=== PATIENT | female | born 1985 | race Caucasian/White ===

== ENCOUNTER 2019-08-30 13:32 | Outpatient (CLI) | payer OTHER, SELFPAY ==
[2019-08-30 14:13] LABS: Hematocrit 38.1 % (37.0-47.0); Hemoglobin 12.8 g/dL (12.0-15.0); Mean Corpuscular HGB Conc 33.6 g/dl (32-36); Mean Corpuscular Hemoglobin 28.1 pg (26-34); Mean Corpuscular Volume 83.6 fl (80-100); Platelet Count Result 211 k/mm3 (150-375); Red Blood Count 4.56 M/mm3 (4.2-5.4); Red Cell Distribution Width 14.6 % (11.5-14.5)
[2019-08-31 07:18] LABS: Rapid Plasma Reagin Non-Reactive (NonReactive)
== END 2019-08-30 13:33 | disposition home or self-care (01) ==
PROVIDERS: PCP Family Medicine; Visit Provider Obstetrics & Gynecology
DX: Z01.818 Encounter for other preprocedural examination (principal)
CPT/HCPCS: 36415; 85027; 86592; 86850; 86900; 86901

== ENCOUNTER 2019-08-31 10:34 | Inpatient (IN) | payer OTHER, SELFPAY ==
--- NOTE | 2019-08-12 12:59 | PC.NURSE ---
VERIFIED WITH OR SCHEDULE AND PATIENT--C/S WITH TUBAL LIGATION ON 08/31/19 AT 1330 PATIENT GIVEN REQUISITION FOR LAB DRAW ON 08/30/19
[2019-08-31] VITALS (37 sets, daily range): BP systolic 75–250; BP diastolic 47–234; PULSE 52–122; RESP 14–19; TEMP 36.1–36.9; O2SAT 94–100; BMI 36.1
--- NOTE | 2019-08-31 10:34 | LDADM ---
This patient, Sindy Carrillo, was admitted to [facility] on 08/31/19 at 10:34. Plans for labor, pain management and were discussed with patient. Patient/family oriented to hospital policies and general routines including ID bracelet, bed and alarms, visiting hours, pain management, procedures, bathroom and other care routines, personal items, smoking policy, room service/diet and guest tray routines, infant security routines, and visiting hours. Patient/Family are encouraged to report perceived risks to care and to ask questions if they do not understand what they are told or what they should do. See OBIX for further documentation.
--- NOTE | 2019-08-31 11:18 | PM.IMHP ---
H&P: HPI History of Present Illness Chief complaint: Pre-IN Narrative: 33-year-old 4 para 2011 at 39 3/7 weeks gestation who is scheduled for repeat delivery with tubal ligation today. She began having contractions at 5:00 a.m. and presented to the hospital earlier than her scheduled time. However, her cervix is still closed. She is having mild contractions every 5-6 minutes. After a discussion again today, she elects to continue with the plan of repeat delivery with tubal ligation. She does not desire any future childbearing. Her has been complicated by hypothyroidism, treated with Synthroid. Her blood type is O-positive, she is rubella immune, hepatitis-B surface antigen negative, RPR negative, HIV negative. GBS culture is negative. Ultrasound exam suggests normal anatomy. Glucose challenge test is normal at 84. She has good movement. She has no vaginal bleeding or loss of fluid. Review of Systems Review of Systems: All systems reviewed & are unremarkable except as noted in HPI and below PMFSH Surgical History Surgical History (Updated 08/31/19 @ 11:21 by Lalit Zarco MD) History of delivery Family History Family History Mother Diabetes mellitus Social History Social History Substance use: never Spiritual care concerns: No Comments One vaginal delivery and one for breech. Meds Home Medications and Allergies Home Medications Medication Instructions Recorded Confirmed Type PNV cmb#95-ferrous fumarate-FA 1 tablet PO DAILY 08/12/19 08/12/19 History [] levothyroxine 50 mcg PO DAILY 08/12/19 08/12/19 History Allergies Allergy/AdvReac Type Severity Reaction Status Date / Time No Known Allergies Allergy Verified 08/12/19 12:39 Vital Signs Vital Signs - 24 hr 08/31/19 11:15 Pulse Rate 76 Blood Pressure 117/83 Exam Const: Orientation/consciousness: patient oriented x3 Other: Well-developed, well-nourished female in no acute distress. Neck: Thyroid: thyroid normal Lymphatic: no lymphadenopathy noted (in neck, axilla or inguinal nodes) Resp: Effort & Inspection: normal respiratory effort Auscultation: clear to auscultation bilaterally Cardio: Rate: regular rate Rhythm: regular rhythm Heart sounds: S1 normal heart sound present and S2 normal heart sound present GI: Other: ABD: Soft, nontender, nondistended. No guarding or rebound tenderness. No hepatosplenomegaly. Gravid. NST reactive. TOCO: contractions every 5-6 min. : General: Yes no CVA tenderness Other: Cervix closed, soft to my exam today. Back/Spine/Pelvis: Back: no CVA tenderness Skin: General skin exam: normal color and no rashes or lesions noted Neuro: General: patient oriented x3 Extrem: Other: Extremities: nontender with no edema Psych: Mental Status: mental status grossly normal Affect: normal affect Assessment and Plan Assessment and plan (1) History of delivery: Code(s): Z98.891 - History of uterine scar from previous surgery Status: Acute Assessment and Plan: We reviewed trial of labor versus repeat delivery. After long discussion, she has opted to go ahead with repeat delivery. In addition, she desires permanent contraception. She does not want any future pregnancies.She understands there are temporary methods of contraception available to her. She understands that there are nonsurgical options as well as surgical options. She understands that tubal ligation will render her permanently sterile. She understands that there is a failure rate associated with tubal ligation, as well as an inherent ectopic gestation risk. Furthermore, she understands risks of surgery to include risks of anesthesia, risks of pain, infection, bleeding, blood products, thromboembolic phenom
[2019-08-31] MEDS: LACTATED RINGERS 1,000 ML 999 ML IV CONT ×2 (11:47→12:28)
--- NOTE | 2019-08-31 12:43 | WPDANESEPPF ---
Anes - Initial Pre Proc Eval Procedure: Operation Date: 08/31/19 13:30 Proposed Procedures p Repeat Section with Bilateral Tubal Ligation - Lalit Zarco MD Date/Time: 08/31/19 12:43 Surgeon: Lalit Zarco MD Pre Op Diagnosis: Pre-IN Patient Data Age: 33 Gender: F Height: 5 ft 7 in Weight: 104.5 kg Last Vital Signs Pulse 78 08/31/19 11:45 BP 116/77 08/31/19 11:45 Allergies Allergy/AdvReac Type Severity Reaction Status Date / Time No Known Allergies Allergy Verified 08/12/19 12:39 Home Medications Medication Instructions Recorded Confirmed Type PNV cmb#95-ferrous fumarate-FA 1 tablet PO DAILY 08/12/19 08/31/19 History [] levothyroxine 50 mcg PO DAILY 08/12/19 08/31/19 History Patient hx anesthesia problems: post op nausea/vomiting Family hx anesthesia problems: none [facility] Past Medical History Medical History (Updated 08/31/19 @ 12:44 by Guicho Díaz MD) Hypothyroidism Surgical History Surgical History History of delivery Family History Family History Mother Diabetes mellitus Social History Social History Smoking status: Former smoker Substance use: never Spiritual care concerns: No Anes - Eval Final PreProcedure Day of Procedure 08/31/19 12:43 Patient weight: overweight Heart: regular rate and rhythm Lungs: clear to auscultation Airway: Mallampati scale class II Neurological: alert and oriented Last oral intake: >/= 8 hours ASA classification: II Emergent: no Anesthetic plan: proceed Anesthesia type and monitoring: regional spinal and standard monitoring Informed Consent: The patient's anesthetic plan and its attendant risks and benefits were discussed with the patient/family/POA. Questions were solicited and answers provided to the satisfaction of the patient/family/POA.
[2019-08-31] MEDS: ceFAZolin 2 GM/D5W 50 ML 2 GM/50 ML BAG IVPB (13:19)
[2019-08-31] MEDS: KETOROLAC 30 MG/ML VIAL (*BKC) IV PUSH ×2 (13:45→15:52)
--- NOTE | 2019-08-31 14:14 | P.PCNOB_ITS ---
OB - Delivery Note Procedure Delivery date: 08/31/19 Procedure: Procedures Operation Date: 08/31/19 13:30 <No data on this case meets the specified criteria> Repeat LTCS with concurrent bilateral tubal ligation via modified [place] technique. Route of delivery: (Repeat LTCS with BTL) Specimen: Yes (Cord blood, segments of bilateral Fallopian tubes) Estimated blood loss (mL): 650 Anesthesia type: Spinal Disposition: PACU Complications: None Narrative: The patient was taken to the operating room where she was prepared and draped in the usual sterile fashion in dorsal supine position with a leftward tilt. She received cefazolin preoperatively. Spinal anesthesia was found to be adequate. A Pfannenstiel skin incision was made along the previous scar line and was carried through to the underlying layer of the fascia. The fascia was incised in the midline and the incision was extended laterally. The fascia was dissected free of the underlying rectus muscles. The rectus muscles were in the midline. The peritoneum was identified, tented up and entered sharply. The peritoneal incision was extended superiorly and inferiorly with good visualization of the bladder. The bladder blade was placed. The vesi couterine peritoneum was identified, tented up and entered sharply. The incision was extended laterally and the bladder flap was developed. The bladder blade was replaced. The uterus was then incised sharply in a transverse fashion along the lower uterine segment. The incision was extended laterally. The infant's head was delivered atraumatically to the sterile field, followed by the body. The nose and mouth were bulb suctioned. After a delay, the cord was clamped and cut. The infant was handed off the field. Cord blood was collected. The placenta was removed manually and was passed off the field. The uterus was exteriorized and cleared of all clots and debris. The uterine incision was reapproximated using 0 Monocryl in a running, locked fashion. Excellent hemostasis resulted as did excellent reapproximation of the normal anatomy. The left fallopian tube was then identified by following it out to the fimbriated end. It was grasped in the midportion with a Rajesh clamp and a loop of tube was ligated with a free tie of 0 plain gut. The tubal segment was then transected and the specimen was passed off to be sent to pathology. Hemostasis was excellent. Attention was turned to the right fallopian tube which was similarly identified, ligated and transected. Once again, excellent hemostasis resulted. The uterus was returned the abdomen. The pelvis was irrigated copiously with warmed normal saline. Rigorous hemostasis was assured. The fascial layer was reapproximated using 0 Vicryl in a running fashion. The skin was closed with a running, subcuticular stitch of 4 0 Vicryl. Dermaflex was applied externally. Sponge, lap, needle and instrument counts were correct. The patient was taken to the recovery room in stable condition. The went to the nursery in stable condition. I was present and scrubbed the entire procedure. [place] [facility] Date of : 08/31/19 Time of : 13:41 Weeks of gestation at delivery: 39 gender: Female Weight (pounds): 8 Weight (ounces): 11 presentation: vertex Placenta delivery description: Manual Removal and Normal Configuration cord vessel description: 3 Vessels score one minute: 8 score five minutes: 9
--- NOTE | 2019-08-31 14:20 | PM.OBDSVD ---
DS: Admitting Diagnosis Admitting Diagnosis Admitting Diagnosis: IUP at 39 3/7 weeks Prior Labor Desired sterility <Lalit Zarco MD - Last Filed: 09/19/19 12:28> DS: Discharge Diagnosis Discharge Diagnosis (1) Unwanted fertility: Code(s): Z30.09 - Encounter for other general counseling and advice on contraception <Lalit Zarco MD - Last Filed: 09/19/19 12:28> Status: Acute <Lalit Zarco MD - Last Filed: 09/19/19 12:28> (2) Term : Code(s): Z34.90 - Encounter for supervision of normal , unspecified, unspecified trimester <Lalit Zarco MD - Last Filed: 09/19/19 12:28> Status: Acute <Lalit Zarco MD - Last Filed: 09/19/19 12:28> (3) History of delivery: Code(s): Z98.891 - History of uterine scar from previous surgery <Lalit Zarco MD - Last Filed: 09/19/19 12:28> Status: Acute <Lalit Zarco MD - Last Filed: 09/19/19 12:28> OB - DS: Summary OB Procedures : None <Marques Mendoza MD - Last Filed: 09/02/19 07:50> OB Procedures Intrapartum: and Tubal ligation <Marques Mendoza MD - Last Filed: 09/02/19 07:50> OB Procedures: : None <Marques Mendoza MD - Last Filed: 09/02/19 07:50> Peripartum Data Procedures: Procedures Operation Date: 08/31/19 13:30 <No data on this case meets the specified criteria> Repeat LTCS with concurrent BTL via modified [place] technique. <Lalit Zarco MD - Last Filed: 09/19/19 12:28> Exam Const: General: comfortable, no acute distress and alert <Marques Mendoza MD - Last Filed: 09/02/19 07:50> Resp: Effort & Inspection: normal respiratory effort <Marques Mendoza MD - Last Filed: 09/02/19 07:50> Auscultation: clear to auscultation bilaterally <Marques Mendoza MD - Last Filed: 09/02/19 07:50> Cardio: Rate: regular rate <Marques Mendoza MD - Last Filed: 09/02/19 07:50> GI: Inspection: non-distended <Marques Mendoza MD - Last Filed: 09/02/19 07:50> GI Palp: Yes Soft to palpation and Yes Tenderness to palpation present (GI) (mild tenderness around incision ) <Marques Mendoza MD - Last Filed: 09/02/19 07:50> Auscultation: normal bowel sounds <Marques Mendoza MD - Last Filed: 09/02/19 07:50> Psych: Appearance: grossly normal <Marques Mendoza MD - Last Filed: 09/02/19 07:50> Mental Status: mental status grossly normal <Marques Mendoza MD - Last Filed: 09/02/19 07:50> Affect: normal affect <Marques Mendoza MD - Last Filed: 09/02/19 07:50> Discharge Plan Discharge Attending physician on discharge: Lalit Zarco <Lalit Zarco MD - Last Filed: 09/19/19 12:28> Lalit Zarco <Marques Mendoza MD - Last Filed: 09/02/19 07:50> Consulting providers: Guicho Díaz <Lalit Zarco MD - Last Filed: 09/19/19 12:28> Discharging Clinician: Lalit Zarco <Lalit Zarco MD - Last Filed: 09/19/19 12:28> Lalit Zarco <Marques Mendoza MD - Last Filed: 09/02/19 07:50> Patient Disposition: Home, Self-Care <Lalit Zarco MD - Last Filed: 09/19/19 12:28> Activity: may shower, may drive after 2 weeks and pelvic rest <Lalit Zarco MD - Last Filed: 09/19/19 12:28> may shower, may drive after 2 weeks and pelvic rest <Marques Mendoza MD - Last Filed: 09/02/19 07:50> Diet: regular <Lalit Zarco MD - Last Filed: 09/19/19 12:28> regular <Marques Mendoza MD - Last Filed: 09/02/19 07:50> Wound Care Instructions: incision open to air <Lalit Zarco MD - Last Filed: 09/19/19 12:28> incision open to air <Marques Mendoza MD - Last Filed: 09/02/19 07:50> Discharge Instructions: Education: Mom and Baby Guide Given to: Mother Follow-Up: Call your delivering provider's office for an appointment to be seen in: 1
[2019-08-31] MEDS: OXYTOCIN 30 UNITS/NS 500 ML 30 UNITS/500 ML BAG 125 UNITS IV CONT (15:52)
[2019-08-31] MEDS: LORATADINE 10 MG TABLET PO (15:53)
--- NOTE | 2019-08-31 16:23 | PC.NURSE ---
PT arrived on unit via stretcher accompanied by spouse and and taken to room 280. PT oriented to room 280 and surrounding area. PT introductions made and plan of care discussed per post op c section, daily care activities, breast feeding, and pain management. Welcome packet reviewed and discussed. PT verbalized understanding of such care
[2019-08-31] MEDS: SIMETHICONE 80 MG TAB.CHEW PO (17:43)
[2019-08-31] MEDS: DOCUSATE SODIUM 100 MG CAPSULE PO (17:43)
[2019-08-31] MEDS: LANOLIN (LANSINOH) 7.5 GM CREAM 1 APPLIC TOPICAL (17:44)
[2019-08-31] MEDS: ACETAMINOPHEN 325 MG TABLET 650 MG PO (20:05)
[2019-09-01] MEDS: IBUPROFEN 600 MG TABLET PO ×3 (04:54→17:43)
[2019-09-01] MEDS: SIMETHICONE 80 MG TAB.CHEW PO ×4 (04:59→17:41)
[2019-09-01 06:10] LABS: Basophils Absolute Auto 0.1 K/mm3 (0.0-0.1); Basophils Percent Auto 0.3 % (0.2-1.2); Eosinophils Percent Auto 0.1 % (0-4.4); Hematocrit 34.1 % (37.0-47.0); Hemoglobin 11.1 g/dL (12.0-15.0); Immature Granulocyte Absolute 0.09 K/mm3 (0.00-0.031); Immature Granulocyte Percent A 0.5 % (0-0.5); Lymphocytes Absolute Auto 1.24 K/mm3 (0.9-3.2); Lymphocytes Percent Auto 7.1 % (18.3-44.2); Mean Corpuscular HGB Conc 32.6 g/dl (32-36); Mean Corpuscular Hemoglobin 27.8 pg (26-34); Mean Corpuscular Volume 85.5 fl (80-100); Mean Platelet Volume 12.3 fl (7.4-10.4); Monocytes Absolute Auto 0.8 K/mm3 (0.1-0.6); Monocytes Percent Auto 4.7 % (2.6-8.5); Neutrophils Absolute Auto 15.1 K/mm3 (1.3-6.7); Neutrophils Percent Auto 87.3 % (45.5-73.1); Platelet Count Result 167 k/mm3 (150-375); Red Blood Count 3.99 M/mm3 (4.2-5.4); Red Cell Distribution Width 14.8 % (11.5-14.5); White Blood Count 17.4 K/mm3 (4.5-10.0)
[2019-09-01 08:35] VITALS: BP 111/64; PULSE 74; RESP 18; TEMP 37.2; O2SAT 95
--- NOTE | 2019-09-01 08:37 | PM.OBPNVD ---
OB - PN: Subj Subjective Date/time seen: 09/01/19 08:37 Narrative: Pain OK. Tolerating diet. OB - PN: Obj Data Labs CBC & Chem 7: 09/01/19 04:47 Labs: Laboratory Results - last 24 hr 09/01/19 04:47 WBC 17.4 H RBC 3.99 L Hgb 11.1 L Hct 34.1 L MCV 85.5 MCH 27.8 MCHC 32.6 RDW 14.8 H Plt Count 167 MPV 12.3 H Immature Gran % (Auto) 0.5 Neut % (Auto) 87.3 H Lymph % (Auto) 7.1 L [place] % (Auto) 4.7 Eos % (Auto) 0.1 Baso % (Auto) 0.3 Lymph # (Auto) 1.24 [place] # (Auto) 0.8 H Eos # (Auto) 0.0 Baso # (Auto) 0.1 Abs Immat Gran (auto) 0.09 H Absolute Neuts (auto) 15.1 H Absolute Nucleated RBC 0.0 Nucleated RBC % 0.0 OB - PN A/P Plan Comments: A: POD#1, doing well. P: Routine care. Exam Narrative: Exam Narrative: AVSS I/O OK ABD soft, nontender, fundus firm. Incision c/d/i. EXT nontender
--- NOTE | 2019-09-01 09:00 | PC.NURSE ---
PT introductions made and plan of care discussed per post op c section, pain management, daily care activities, breast feeding. PT verbalized understanding of such care.
[2019-09-01 09:03] VITALS: PULSE 74; RESP 18; O2SAT 95
[2019-09-01] MEDS: DOCUSATE SODIUM 100 MG CAPSULE PO ×2 (09:03→17:41)
[2019-09-01] MEDS: LEVOTHYROXINE SODIUM 50 MCG TABLET PO (09:03)
[2019-09-01] MEDS: ACETAMINOPHEN 325 MG TABLET 650 MG PO ×3 (09:03→17:40)
[2019-09-01] MEDS: MULTIVIT/MIN/PREN/FOL AC/IRON TABLET 1 TAB PO (09:03)
--- NOTE | 2019-09-01 09:04 | WPDANLDNPN2 ---
Anes-Prog Note L&D-Neuraxial Date/Time: 09/01/19 09:04 Neuraxial medications: intrathecal PF morphine Opiod-related complaints: none Patient feedback: Patient satisfied with post-operative pain management.
--- NOTE | 2019-09-01 09:04 | WPDANLDPN2 ---
Anes-Prog Note L&D Date/Time: 09/01/19 09:04 Comfortable throughout: section Neuraxial method: spinal Epidural/Spinal procedure site: clean & non-tender Neuro status: Neuro function grossly intact. Cardiovascular status: normal Respiratory status: normal Airway patency: baseline Mental status: baseline Post-Op hydration status: normal Vital Signs: Last Vital Signs Temp 36.8 C 08/31/19 23:45 Pulse 64 08/31/19 23:45 Resp 16 08/31/19 23:45 BP 122/72 08/31/19 23:45 Pulse Ox 97 08/31/19 23:45 I/O: Intake & Output 08/31/19 09/01/19 09/01/19 23:59 07:59 15:59 Intake Total 900 Output Total 757 Balance 143 Post-procedural complaints: none Patient feedback: Patient satisfied with anesthetic care.
[2019-09-01 12:20] VITALS: BP 109/65; PULSE 88; RESP 18; TEMP 37.2; O2SAT 98
--- NOTE | 2019-09-01 13:45 | PC.NURSE ---
Consult with pt., mother reports is eagerly waking and latching without difficulties or discomfort. This is mother's 3rd child to breastfeed, she reports the easiest so far. Reviewed feeding cues, frequencies, duration of feedings, feeding elimination flow sheet, and signs of adequate intake. is feeding as required and with adequate output. Nipple care reviewed. Instructed mother to call out for RN assistance if she is unable to latch for feeding or she has discomfort with nursing. Instructed feeding should be initiated three hours from start of last feeding or if feeding cues are noted before. Mother voiced understanding of information shared.
[2019-09-01 20:10] VITALS: BP 109/68; PULSE 89; RESP 14; TEMP 36.8; O2SAT 100
[2019-09-02] MEDS: IBUPROFEN 600 MG TABLET PO ×2 (00:17→09:25)
[2019-09-02] MEDS: ACETAMINOPHEN 325 MG TABLET 650 MG PO ×2 (00:19→09:24)
[2019-09-02 07:45] VITALS: BP 123/67; PULSE 70; RESP 18; TEMP 37.4; O2SAT 98
--- NOTE | 2019-09-02 08:30 | PC.NURSE ---
Mother is able to independently latch infant with appropriate positioning/alignment. She denies any nipple discomfort, is feeding as required and waking to feed if needed. has had at least 8 effective feedings in the past 24 hours, and is currently meeting outcomes for weight, output, jaundice and feeding frequencies. Mother states she feels confident to continue effective at home. Reviewed transition to breast milk, signs of adequate intake, and engorgement/relief. Instructed to call ICP if intake/output less than required. Reviewed regular medications mother is taking. Information provided per [facility]. Reviewed community resources on the [facility] website and in the Mom/Baby guide. Information on outpatient services provided. Mother has no further questions at this time.
[2019-09-02] MEDS: DOCUSATE SODIUM 100 MG CAPSULE PO (09:25)
[2019-09-02] MEDS: MULTIVIT/MIN/PREN/FOL AC/IRON TABLET 1 TAB PO (09:25)
[2019-09-02] MEDS: LEVOTHYROXINE SODIUM 50 MCG TABLET PO (09:27)
[2019-09-05 11:09] VITALS: BP 137/68; PULSE 82; RESP 20
== END 2019-09-02 14:35 | disposition home or self-care (01) | DRG 785 ==
LOC: ANHOBPP 14:22 → ANHOB2 09-02 10:05 → ANHLDR 09-06 11:53 → ANHOB2 09-06 11:53 → ANHOBPP 09-06 11:53
PROVIDERS: Admitting Provider Obstetrics & Gynecology; PCP Family Medicine; Visit Provider Student in an Organized Health Care Education/Training Program
PROC: 10D00Z1 Extraction of Products of Conception, Low, Open Approach (ICD-10-PCS; CPT 59514; principal; 2019-08-31 13:30)
DX: O34.211 Maternal care for low transverse scar from previous cesarean delivery (principal); O69.9XX0 Labor and delivery complicated by cord complication, unspecified, not applicable or unspecified; Z30.2 Encounter for sterilization; O99.284 Endocrine, nutritional and metabolic diseases complicating childbirth; E03.9 Hypothyroidism, unspecified; Z3A.39 39 weeks gestation of pregnancy; Z37.0 Single live birth
CPT/HCPCS: 36415; 85025; 88302; A9270; J0131; J0690; J1200; J1885; J2274; J2370; J2405; J2590; J7120

== ENCOUNTER 2023-12-29 16:56 | Emergency (ER) | payer OTHER, SELFPAY ==
[2023-12-29 17:09] VITALS: BP 119/52; PULSE 83; RESP 16; TEMP 36.8; O2SAT 100
--- NOTE | 2023-12-29 17:24 | ED.URI ---
HPI - URI/Sore Throat General Chief Complaint: Upper Respiratory Infection Stated Complaint: congestion and cough Time Seen by Provider: 12/29/23 17:24 Source: patient and RN notes reviewed Mode of arrival: ambulatory Limitations: no limitations History of Present Illness HPI Narrative: 38 y/o female presented for c/o headache, cough, nasal congestion and drainage, body aches and subjective fever. Onset 2 days. Tested negative for covid at home today. States her son is taking Z-pack for walking pneumonia. Taking Tylenol and ibuprofen. Denies chest pain, palpitations, sob, wheezing, n/v/d. MD elicited complaint: cough Related Data Home Medications Medication Instructions Recorded Confirmed levothyroxine 50 mcg tablet 50 mcg PO DAILY 08/12/19 12/29/23 fluoxetine 20 mg capsule 20 mg DIRECTED 12/29/23 12/29/23 Allergies Allergy/AdvReac Type Severity Reaction Status Date / Time No Known Allergies Allergy Verified 08/12/19 12:39 Review of Systems Review of Systems: CONSTITUTIONAL: Endorses malaise, chills, sweats, fever EYES: Denies visual changes, redness, or discharge ENT: Reports rhinorrhea, congestion, sinus pain, otalgia CARDIOVASCULAR: Denies chest pain, palpitations, edema RESPIRATORY: Reports cough, post nasal drainage. Denies dyspnea GASTROINTESTINAL: Denies abdominal pain, nausea, vomiting, diarrhea SKIN: Denies rash or itching MUSCULOSKELETAL: Endorses myalgia NEUROLOGIC: Reports headache PMFSH Past Medical History Medical History Hypothyroidism Surgical History Surgical History History of delivery Family History Family History Mother Diabetes mellitus Social History Social History Smoking status: Former smoker Substance use: never Spiritual care concerns: No Exam Narrative: GENERAL: mildly Ill-appearing, nontoxic no acute distress. EYES: PERRLA, conjunctivae clear ENT: Mucous membranes moist. TMs pearly love with dull light reflex bilaterally; no tragal tenderness. Oropharynx not erythematous without lesions or exudate, no drooling, no hoarseness, no trismus, uvula midline. No tripod positioning, muffled voice, soft palate or pharyngeal wall bulging NECK: Supple. No lymphadenopathy CHEST: Clear to auscultation, breath sounds equal. No wheezing, rhonchi, rales, or stridor. No respiratory distress, speaks in full sentences. HEART: Regular rate and rhythm. No murmur heard. SKIN: Warm, dry, no rash. NEURO: Alert and oriented x3. PSYCH: Normal mood and affect Course Course Emergency Course: Patient is aware of diagnosis, understands and agrees to treatment plan. Anticipatory guidance given. Patient agrees to follow-up as directed and is aware of reasons to seek care at the emergency department. Portions of this record may have been created with voice recognition software Level of Care: Express Care Visit Vital Signs Vital signs: Vital Signs Temperature 98.2 F 12/29/23 17:09 Pulse Rate 83 12/29/23 17:09 Respiratory Rate 16 12/29/23 17:09 Blood Pressure 119/52 L 12/29/23 17:09 Pulse Oximetry 100 12/29/23 17:09 Oxygen Delivery Room Air 12/29/23 17:09 Temperature 98.2 F 12/29/23 17:09 Pulse Rate 83 12/29/23 17:09 Respiratory Rate 16 12/29/23 17:09 Blood Pressure 119/52 L 12/29/23 17:09 Pulse Oximetry 100 12/29/23 17:09 Oxygen Delivery Room Air 12/29/23 17:09 reviewed MDM - URI/Sore Throat MDM Narrative Medical decision making narrative: Discussed physical exam findings and neg influenza results. Advised supportive measures and signs/symptoms to go to the ER. Pt is appropriate for outpt treatment and f/u. Differential Diagnosis Differential diagnosis: Likely upper respiratory infection, sinu
[2023-12-29 18:09] LABS: EDINFLUASCREEN Negative (Negative); EDINFLUBSCREEN Negative (Negative)
== END 2023-12-29 18:05 | disposition home or self-care (01) ==
PROVIDERS: Emergency Provider Nurse Practitioner Family; PCP Family Medicine
DX: J06.9 Acute upper respiratory infection, unspecified (principal); E03.9 Hypothyroidism, unspecified; Z87.891 Personal history of nicotine dependence
CPT/HCPCS: 87804; 99213; G0463